=== PATIENT | female | born 1950 | race African-American/Black ===

== ENCOUNTER 2017-01-19 08:31 | Inpatient (IN) | payer MEDICARE, MEDICAID ==
[~2017-01-19] VITALS: Ht 167.6 cm; Wt 63.5 kg
[~2017-01-19 08:31] MED LIST: AMLO10TA80 PO; AP50 PO; ATOR20TA PO; CALC667C4 PO; CATATTS2 TD; CLON1PAT8 TD; ESOM40CA PO; FERR-63 PO; FURO80TA87 PO; LOTE5DRO5 OP; METO100T5 PO; METO10TA3 PO; METO5TAB69 PO; POTA10TA19 PO; ROC50 PO; SERT50TA PO; [UNRECOGNIZED DRUG - CODE]; [UNRECOGNIZED DRUG - CODE] TD
[2017-01-19] MEDS ORDERED: ONDANSETRON HCL 4MG/2ML VIAL IV STA (09:10)
[2017-01-19 09:41] LABS: BASOPHILS % 0.4 % (0.0-2.0); EOSINOPHILS % 1.8 % (0.0-5.0); HEMATOCRIT. 42.7 % (36.0-48.0); HEMOGLOBIN. 14.6 g/dL (12.0-16.0); LYMPHOCYTES % 14.3 % (20.0-50.0); MEAN CORPUSCULAR HEMOGLOBIN 32.4 pg (28.0-32.0); MEAN CORPUSCULAR HGB CONC 34.1 g/dL (31.0-37.0); MEAN CORPUSCULAR VOLUME 94.9 fL (81.0-99.0); MEAN PLATELET VOLUME 8.3 fl (7.4-10.4); MONOCYTES % 7.7 % (2.0-8.0); NEUTROPHILS % 75.8 % (40.0-76.0); PLATELET 295 x1000/uL (130-400); RED CELL DISTRIBUTION WIDTH 14.7 % (11.6-14.6); WHITE BLOOD COUNT 10.5 x1000/uL (4.5-11.0)
[2017-01-19 09:48] LABS: CHLORIDE 82 mEq/L (98-107); INDEX HEMOLYSI 3 (1-3); INDEX ICTERIC 1 (1-4); INDEX LIPEMIC 1 (1-3)
[2017-01-19 09:58] LABS: ALANINE AMINOTRANSFERASE 22 IU/L (13-61); ALBUMIN 4.1 g/dL (3.4-5.0); ANION GAP 21; CALCIUM 10.4 mg/dL (8.5-10.1); CARBON DIOXIDE 30 mEq/L (21-32); LIPASE 338 IU/L (73-393); NT PRO B-TYPE NATRIURETIC PEP 14534 pg/mL (5-125); UREA NITROGEN BLOOD 37 mg/dL (7-21); eGFR 5 mL/min (>60)
[2017-01-19] MEDS ORDERED: METOCLOPRAMIDE HCL 10MG/2ML VIAL IV ONE (10:00)
[2017-01-19 10:22] LABS: CLARITY URINE CLEAR (CLEAR); COLOR URINE YELLOW (YELLOW); GLUCOSE URINE 2+ (NEGATIVE); KETONES URINE NEGATIVE (NEGATIVE); LEUKOCYTE ESTERASE URINE TRACE (NEGATIVE); NITRITE URINE NEGATIVE (NEGATIVE); OCCULT BLOOD URINE TRACE (NEGATIVE); PH URINE >=9.0 (4.5-8.0); PROTEIN URINE 3+ (NEGATIVE); SPECIFIC GRAVITY URINE 1.013 (1.005-1.030); UROBILINOGEN URINE 0.2 E.U./dL (0.2-1.0)
[2017-01-19] MEDS ORDERED: VANCOMYCIN 1 G PREMIX 200 ML IV SCH (10:30)
[2017-01-19] MEDS ORDERED: PIPERACILLIN/TAZ 3.375G PREMIX 50 ML IV ONE (10:30)
[2017-01-19 10:45] LABS: SQUAMOUS EPITHELIAL CELL URINE 2+ /lpf (RARE/1+)
[2017-01-19 10:46] LABS: BACTERIA URINE 2+; RBC URINE NONE SEEN /hpf (0-2)
[2017-01-19] MEDS ORDERED: CLONIDINE 0.1MG TABLET PO PRN (12:45)
[2017-01-19] MEDS ORDERED: HYDROMORPHONE HCL/PF 2MG/ML CPJ IV PRN (12:45)
[2017-01-19] MEDS ORDERED: DOCUSATE SODIUM 100MG CAPSULE PO PRN (12:45)
[2017-01-19] MEDS ORDERED: ACETAMINOPHEN 325MG TABLET PO PRN (12:45)
[2017-01-19] MEDS ORDERED: ONDANSETRON HCL 4MG/2ML VIAL IV PRN (12:45)
[2017-01-19 13:45] VITALS: BP 169/83
[2017-01-19] MEDS ORDERED: PROCHLORPERAZINE MALEATE 25MG SUPP PR PRN (14:00)
[2017-01-19] MEDS ORDERED: SODIUM CHLORIDE 0.9% 1,000 ML IV SCH (14:15)
[2017-01-19] MEDS ORDERED: DEXTROSE 50% WATER 50ML SYRINGE IV PRN (14:30)
[2017-01-19] MEDS ORDERED: SODIUM CHL 0.45% + KCL 20MEQ/L 1,000 ML IV SCH (14:30)
[2017-01-19] MEDS: FERROUS SULFATE 325MG TABLET PO SCH ×2 (14:53→17:02)
[2017-01-19] MEDS: HYDRALAZINE HCL 50MG TABLET PO SCH ×2 (14:54→20:45)
[2017-01-19 15:46] LABS: CREATINE KINASE MB FRACTION 5.1 ng/mL (0.5-3.6); TROPONIN I 0.09 ng/mL (0.00-0.04)
[2017-01-19 16:00] VITALS: BP 148/72
[2017-01-19] MEDS ORDERED: ENOXAPARIN 40MG/0.4ML SYR SUBCUT SCH (16:00)
[2017-01-19] MEDS: IPRATROPIUM/ALBUTEROL 0.5-3(2.5)MG/3ML NEB HHN SCH ×2 (16:30→21:13)
[2017-01-19] MEDS ORDERED: CALCIUM ACETATE 667MG CAPSULE PO SCH (17:00)
[2017-01-19] MEDS ORDERED: METOPROLOL TARTRATE 100MG TABLET PO SCH (17:00)
[2017-01-19] MEDS: METOCLOPRAMIDE HCL 10MG/2ML VIAL IV SCH (17:11)
[2017-01-19] MEDS: INSULIN LISPRO 100 UNITS/ML SUBCUT SCH ×2 (17:11→21:00)
[2017-01-19] MEDS: BLOOD SUGAR DIAGNOSTIC STRIP TEST SCH ×2 (17:18→21:00)
[2017-01-19 20:10] VITALS: BP 87/49
[2017-01-19 22:46] LABS: TROPONIN I 0.14 ng/mL (0.00-0.04)
[2017-01-19 23:30] VITALS: BP 105/46
[2017-01-20] MEDS: METOCLOPRAMIDE HCL 10MG/2ML VIAL IV SCH ×4 (00:22→17:01)
[2017-01-20] MEDS: IPRATROPIUM/ALBUTEROL 0.5-3(2.5)MG/3ML NEB HHN SCH ×6 (00:59→20:36)
[2017-01-20 04:15] VITALS: BP 100/48
[2017-01-20] MEDS: HYDRALAZINE HCL 50MG TABLET PO SCH ×3 (04:45→21:48)
[2017-01-20 06:14] LABS: BASOPHILS % 0.8 % (0.0-2.0); HEMATOCRIT. 37.2 % (36.0-48.0); HEMOGLOBIN. 12.4 g/dL (12.0-16.0); LYMPHOCYTES % 21.8 % (20.0-50.0); MEAN CORPUSCULAR HEMOGLOBIN 32.1 pg (28.0-32.0); MEAN CORPUSCULAR HGB CONC 33.2 g/dL (31.0-37.0); MEAN CORPUSCULAR VOLUME 96.7 fL (81.0-99.0); MEAN PLATELET VOLUME 8.1 fl (7.4-10.4); MONOCYTES % 11.5 % (2.0-8.0); NEUTROPHILS % 61.9 % (40.0-76.0); PLATELET 243 x1000/uL (130-400); RED BLOOD CELL COUNT 3.85 mill/uL (4.2-5.4); RED CELL DISTRIBUTION WIDTH 14.7 % (11.6-14.6); WHITE BLOOD COUNT 7.6 x1000/uL (4.5-11.0)
[2017-01-20] MEDS: BLOOD SUGAR DIAGNOSTIC STRIP TEST SCH ×4 (06:34→21:47)
[2017-01-20] MEDS: INSULIN LISPRO 100 UNITS/ML SUBCUT SCH ×4 (06:52→21:45)
[2017-01-20 08:00] VITALS: BP 116/64
[2017-01-20 08:24] LABS: CALCIUM 9.3 mg/dL (8.5-10.1); MAGNESIUM 2.3 mg/dL (1.8-2.4); PHOSPHORUS 3.8 mg/dL (2.5-4.9)
[2017-01-20] MEDS ORDERED: CEFTRIAXONE 1 G PREMIX 50 ML IV SCH (09:00)
[2017-01-20] MEDS: METOPROLOL TARTRATE 100MG TABLET PO SCH ×3 (09:00→21:00)
[2017-01-20] MEDS: CALCIUM ACETATE 667MG CAPSULE PO SCH ×2 (09:19→17:02)
[2017-01-20] MEDS: PANTOPRAZOLE SODIUM 40 MG/VIAL IV SCH (09:19)
[2017-01-20] MEDS: FERROUS SULFATE 325MG TABLET PO SCH ×3 (09:20→17:00)
[2017-01-20] MEDS: ATORVASTATIN CALCIUM 20MG TABLET PO SCH (09:20)
[2017-01-20] MEDS: AMLODIPINE 10MG TABLET PO SCH (09:20)
[2017-01-20 12:00] VITALS: BP 153/79
[2017-01-20 16:00] VITALS: BP 130/65
[2017-01-20] MEDS: ENOXAPARIN 30MG/0.3ML SYR SUBCUT SCH ×2 (17:01→17:03)
[2017-01-20 20:00] VITALS: BP 97/56
[2017-01-21] VITALS: BP 175/84
[2017-01-21] MEDS: METOCLOPRAMIDE HCL 10MG/2ML VIAL IV SCH ×4 (00:17→17:43)
[2017-01-21] MEDS: HYDRALAZINE HCL 50MG TABLET PO SCH ×4 (00:26→21:38)
[2017-01-21] MEDS: IPRATROPIUM/ALBUTEROL 0.5-3(2.5)MG/3ML NEB HHN SCH ×6 (00:38→21:28)
[2017-01-21 04:00] VITALS: BP 106/59
[2017-01-21] MEDS: BLOOD SUGAR DIAGNOSTIC STRIP TEST SCH ×4 (06:10→21:07)
[2017-01-21 06:29] LABS: BASOPHILS % 0.7 % (0.0-2.0); EOSINOPHILS % 3.2 % (0.0-5.0); HEMATOCRIT. 36.1 % (36.0-48.0); HEMOGLOBIN. 11.9 g/dL (12.0-16.0); LYMPHOCYTES % 15.7 % (20.0-50.0); MEAN CORPUSCULAR VOLUME 97.1 fL (81.0-99.0); MEAN PLATELET VOLUME 8.4 fl (7.4-10.4); MONOCYTES % 8.4 % (2.0-8.0); PLATELET 215 x1000/uL (130-400); RED BLOOD CELL COUNT 3.72 mill/uL (4.2-5.4); RED CELL DISTRIBUTION WIDTH 15.1 % (11.6-14.6); WHITE BLOOD COUNT 10.6 x1000/uL (4.5-11.0)
[2017-01-21] MEDS: INSULIN LISPRO 100 UNITS/ML SUBCUT SCH ×4 (06:38→21:41)
[2017-01-21 06:54] LABS: CALCIUM 8.9 mg/dL (8.5-10.1)
[2017-01-21 08:00] VITALS: BP 99/55
[2017-01-21] MEDS: AMLODIPINE 10MG TABLET PO SCH (09:00)
[2017-01-21] MEDS: METOPROLOL TARTRATE 100MG TABLET PO SCH ×2 (09:00→21:00)
[2017-01-21] MEDS: ATORVASTATIN CALCIUM 20MG TABLET PO SCH (09:06)
[2017-01-21] MEDS: CALCIUM ACETATE 667MG CAPSULE PO SCH ×2 (09:06→17:28)
[2017-01-21] MEDS: FERROUS SULFATE 325MG TABLET PO SCH ×3 (09:07→17:43)
[2017-01-21] MEDS: PANTOPRAZOLE SODIUM 40 MG/VIAL IV SCH (09:07)
[2017-01-21] MEDS: INSULIN DETEMIR UD 100 UNITS/ML SYR SUBCUT SCH (09:12)
[2017-01-21 12:00] VITALS: BP 110/59
[2017-01-21 16:00] VITALS: BP 169/77
[2017-01-21] MEDS: ENOXAPARIN 30MG/0.3ML SYR SUBCUT SCH (17:44)
[2017-01-21 20:00] VITALS: BP 110/51
[2017-01-22] VITALS: BP 105/65
[2017-01-22] MEDS: IPRATROPIUM/ALBUTEROL 0.5-3(2.5)MG/3ML NEB HHN SCH ×2 (00:45→04:45)
[2017-01-22] MEDS: METOCLOPRAMIDE HCL 10MG/2ML VIAL IV SCH ×3 (00:57→12:00)
[2017-01-22] MEDS: HYDRALAZINE HCL 50MG TABLET PO SCH ×2 (05:38→13:09)
[2017-01-22 05:43] LABS: CALCIUM 8.5 mg/dL (8.5-10.1)
[2017-01-22 06:27] LABS: BASOPHILS % 0.9 % (0.0-2.0); EOSINOPHILS % 4.2 % (0.0-5.0); HEMATOCRIT. 33.1 % (36.0-48.0); LYMPHOCYTES % 24.4 % (20.0-50.0); MEAN CORPUSCULAR HEMOGLOBIN 32.7 pg (28.0-32.0); MEAN CORPUSCULAR HGB CONC 33.3 g/dL (31.0-37.0); MEAN CORPUSCULAR VOLUME 98.2 fL (81.0-99.0); MEAN PLATELET VOLUME 8.7 fl (7.4-10.4); NEUTROPHILS % 59.5 % (40.0-76.0); PLATELET 159 x1000/uL (130-400); RED BLOOD CELL COUNT 3.37 mill/uL (4.2-5.4); RED CELL DISTRIBUTION WIDTH 15.1 % (11.6-14.6); WHITE BLOOD COUNT 7.6 x1000/uL (4.5-11.0)
[2017-01-22] MEDS: BLOOD SUGAR DIAGNOSTIC STRIP TEST SCH ×2 (06:39→11:45)
[2017-01-22] MEDS: INSULIN LISPRO 100 UNITS/ML SUBCUT SCH ×2 (06:39→12:40)
[2017-01-22 08:00] VITALS: BP 107/99
[2017-01-22] MEDS: ATORVASTATIN CALCIUM 20MG TABLET PO SCH (08:30)
[2017-01-22] MEDS: METOPROLOL TARTRATE 100MG TABLET PO SCH (08:31)
[2017-01-22] MEDS: AMLODIPINE 10MG TABLET PO SCH (08:31)
[2017-01-22] MEDS: CALCIUM ACETATE 667MG CAPSULE PO SCH (08:32)
[2017-01-22] MEDS: FERROUS SULFATE 325MG TABLET PO SCH ×2 (08:33→13:00)
[2017-01-22] MEDS ORDERED: FAMOTIDINE 20MG TABLET PO SCH (09:00)
[2017-01-22] MEDS: INSULIN DETEMIR UD 100 UNITS/ML SYR SUBCUT SCH (10:53)
[2017-01-22 12:00] VITALS: BP 169/80
[2017-01-22 12:23] VITALS: BP 107/99
[2017-01-24] MEDS ORDERED: CLONIDINE HCL 0.2MG/24HR PATCH TD SCH (09:00)
[2017-01-24] MEDS ORDERED: CLONIDINE HCL 0.3MG/24HR PATCH TD SCH (09:00)
== END 2017-01-22 14:45 | disposition home or self-care (01) | DRG 73 ==
LOC: ER 08:54 → 8WST 10:43
PROVIDERS: ADMIT Internal Medicine Geriatric Medicine; ATTEND Internal Medicine Geriatric Medicine
PROC: 5A1D60Z (ICD-10-PCS; principal; 2017-01-19)
DX: E11.43 Type 2 diabetes mellitus with diabetic autonomic (poly)neuropathy (principal); N18.6 End stage renal disease; E87.2 Acidosis; N39.0 Urinary tract infection, site not specified; E87.1 Hypo-osmolality and hyponatremia; I13.11 Hypertensive heart and chronic kidney disease without heart failure, with stage 5 chronic kidney disease, or end stage renal disease; I16.0 Hypertensive urgency; K31.84 Gastroparesis; E11.65 Type 2 diabetes mellitus with hyperglycemia; D63.8 Anemia in other chronic diseases classified elsewhere; E11.319 Type 2 diabetes mellitus with unspecified diabetic retinopathy without macular edema; E11.22 Type 2 diabetes mellitus with diabetic chronic kidney disease; E86.0 Dehydration; E61.1 Iron deficiency; E86.1 Hypovolemia; E87.70 Fluid overload, unspecified; H40.9 Unspecified glaucoma; Z90.710 Acquired absence of both cervix and uterus; Z99.2 Dependence on renal dialysis; Z86.14 Personal history of Methicillin resistant Staphylococcus aureus infection; Z98.890 Other specified postprocedural states; Z79.4 Long term (current) use of insulin
CPT/HCPCS: 36415; 71010; 74176; 80048; 80053; 81001; 82553; 82962; 83605; 83690; 83735; 83880; 84100; 84484; 85025; 87040; 87086; 93005; 94640; 94664; 96374; 97116; 97162; 97530; 99285; C1893; C9113; J0696; J1650; J1815; J2405; J2543; J2765; J3370; J3480; J7030; J7620

== ENCOUNTER 2017-03-23 08:55 | Inpatient (IN) | payer MEDICARE, MEDICAID ==
[~2017-03-23] VITALS: Ht 167.6 cm; Wt 62.1 kg
[~2017-03-23 08:55] MED LIST changes: +BRIM10DR2; +LATA2.5D2 EACHEYE; -LOTE5DRO5 OP
[2017-03-23] MEDS ORDERED: METOCLOPRAMIDE HCL 10MG/2ML VIAL IV ONE (09:45)
[2017-03-23 10:07] LABS: BASOPHILS % 0.8 % (0.0-2.0); EOSINOPHILS % 2.1 % (0.0-5.0); HEMATOCRIT. 40.3 % (36.0-48.0); HEMOGLOBIN. 13.6 g/dL (12.0-16.0); LYMPHOCYTES % 7.7 % (20.0-50.0); MEAN CORPUSCULAR HEMOGLOBIN 31.3 pg (28.0-32.0); MEAN CORPUSCULAR VOLUME 92.6 fL (81.0-99.0); MEAN PLATELET VOLUME 7.6 fl (7.4-10.4); MONOCYTES % 10.1 % (2.0-8.0); NEUTROPHILS % 79.3 % (40.0-76.0); PLATELET 291 x1000/uL (130-400); RED BLOOD CELL COUNT 4.35 mill/uL (4.2-5.4); RED CELL DISTRIBUTION WIDTH 14.3 % (11.6-14.6)
[2017-03-23 10:15] LABS: PROTHROMBIN TIME 10.7 sec
[2017-03-23 10:26] LABS: CARBON DIOXIDE 26 mEq/L (21-32); CHLORIDE 90 mEq/L (98-107); TROPONIN I 0.04 ng/mL (0.00-0.04)
[2017-03-23] MEDS ORDERED: MORPHINE SULFATE 4 MG/ML CPJ (NOT FOR IM USE) IV ONE (10:30)
[2017-03-23] MEDS ORDERED: HYDRALAZINE 20MG/ML VIAL IV ONE (10:30)
[2017-03-23 10:38] LABS: CLARITY URINE CLEAR (CLEAR); COLOR URINE YELLOW (YELLOW); GLUCOSE URINE 1+ (NEGATIVE); KETONES URINE 1+ (NEGATIVE); LEUKOCYTE ESTERASE URINE TRACE (NEGATIVE); NITRITE URINE NEGATIVE (NEGATIVE); OCCULT BLOOD URINE NEGATIVE (NEGATIVE); PH URINE 8.5 (4.5-8.0); PROTEIN URINE 2+ (NEGATIVE); UROBILINOGEN URINE 0.2 E.U./dL (0.2-1.0)
[2017-03-23 12:00] VITALS: BP 129/65
[2017-03-23 12:06] VITALS: BP 129/65
[2017-03-23] MEDS ORDERED: DEXTROSE 50% WATER 50ML SYRINGE IV PRN (12:30)
[2017-03-23] MEDS ORDERED: METOCLOPRAMIDE HCL 10MG/2ML VIAL IV PRN (12:30)
[2017-03-23] MEDS ORDERED: ACETAMINOPHEN 650MG SUPP PR PRN (13:15)
[2017-03-23] MEDS ORDERED: HYDROMORPHONE HCL/PF 2MG/ML CPJ IV PRN (13:15)
[2017-03-23] MEDS ORDERED: IPRATROPIUM/ALBUTEROL 0.5-3(2.5)MG/3ML NEB INH PRN (13:15)
[2017-03-23] MEDS: BLOOD SUGAR DIAGNOSTIC STRIP TEST SCH ×3 (13:17→21:00)
[2017-03-23] MEDS: PANTOPRAZOLE SODIUM 40 MG/VIAL IV SCH (13:30)
[2017-03-23] MEDS: HYDRALAZINE HCL 50MG TABLET PO SCH ×2 (14:00→21:33)
[2017-03-23] MEDS ORDERED: CLONIDINE HCL 0.2MG/24HR PATCH TD SCH (15:00)
[2017-03-23] MEDS: POTASSIUM CHLORIDE 20MEQ TABLET SR PO SCH ×2 (15:21→17:47)
[2017-03-23] MEDS: ENOXAPARIN 30MG/0.3ML SYR SUBCUT SCH (15:21)
[2017-03-23] MEDS: INSULIN LISPRO 100 UNITS/ML SUBCUT SCH ×3 (15:22→21:00)
[2017-03-23 15:51] LABS: CREATINE KINASE MB FRACTION 1.2 ng/mL (0.5-3.6); TROPONIN I 0.06 ng/mL (0.00-0.04)
[2017-03-23 16:00] VITALS: BP 106/46
[2017-03-23] MEDS: FERROUS SULFATE 325MG TABLET PO SCH (17:00)
[2017-03-23] MEDS: FUROSEMIDE 80MG TABLET PO SCH (17:15)
[2017-03-23] MEDS: CALCIUM ACETATE 667MG CAPSULE PO SCH (17:47)
[2017-03-23 20:00] VITALS: BP 115/51
[2017-03-23] MEDS: AZITHROMYCIN 500 MG in DEXT 5% WATER 250 ML IV SCH (21:31)
[2017-03-23] MEDS: LEVOFLOXACIN 250MG PREMIX 50 ML IV SCH (21:32)
[2017-03-23] MEDS: METOPROLOL TARTRATE 100MG TABLET PO SCH (21:33)
[2017-03-23] MEDS: LATANOPROST 0.005% OPHTH DROPS 2.5ML EACHEYE SCH (21:47)
[2017-03-23 23:30] LABS: CREATINE KINASE MB FRACTION 1.9 ng/mL (0.5-3.6); TROPONIN I 0.09 ng/mL (0.00-0.04)
[2017-03-24] VITALS: BP 165/71
[2017-03-24 04:00] VITALS: BP 124/77
[2017-03-24] MEDS: FUROSEMIDE 80MG TABLET PO SCH ×2 (07:03→16:04)
[2017-03-24] MEDS: HYDRALAZINE HCL 50MG TABLET PO SCH ×3 (07:03→23:47)
[2017-03-24] MEDS: BLOOD SUGAR DIAGNOSTIC STRIP TEST SCH ×4 (07:15→21:00)
[2017-03-24] MEDS: SODIUM CHLORIDE 0.45% 1,000 ML IV SCH ×2 (07:16→10:47)
[2017-03-24 07:30] VITALS: BP 163/94
[2017-03-24] MEDS: CALCIUM ACETATE 667MG CAPSULE PO SCH ×3 (08:10→16:05)
[2017-03-24] MEDS: PANTOPRAZOLE SODIUM 40 MG/VIAL IV SCH (09:25)
[2017-03-24] MEDS: ATORVASTATIN CALCIUM 20MG TABLET PO SCH (09:26)
[2017-03-24] MEDS: FERROUS SULFATE 325MG TABLET PO SCH ×3 (09:26→16:28)
[2017-03-24] MEDS: ENOXAPARIN 30MG/0.3ML SYR SUBCUT SCH (09:26)
[2017-03-24] MEDS: AMLODIPINE 10MG TABLET PO SCH (09:26)
[2017-03-24] MEDS: POTASSIUM CHLORIDE 20MEQ TABLET SR PO SCH ×4 (09:26→17:00)
[2017-03-24] MEDS: ACETAMINOPHEN 325MG TABLET PO PRN ×2 (09:27→18:00)
[2017-03-24] MEDS: METOPROLOL TARTRATE 100MG TABLET PO SCH ×2 (09:27→22:01)
[2017-03-24] MEDS: INSULIN LISPRO 100 UNITS/ML SUBCUT SCH ×4 (09:28→21:00)
[2017-03-24 11:56] VITALS: BP 112/55
[2017-03-24] MEDS: LEVOFLOXACIN 250MG PREMIX 50 ML IV SCH (15:16)
[2017-03-24] MEDS: AZITHROMYCIN 500 MG in DEXT 5% WATER 250 ML IV SCH (15:16)
[2017-03-24] MEDS: SENNOSIDES/DOCUSATE SOD 8.6/50MG TABLET PO SCH ×3 (15:58→17:37)
[2017-03-24] MEDS: NA PHOS,M-B/NA PHOS,DI-BA ENEMA 118ML PR NR ×2 (15:58→16:23)
[2017-03-24] MEDS: DOCUSATE SODIUM 250MG CAPSULE PO SCH ×3 (15:58→17:37)
[2017-03-24 16:00] VITALS: BP 98/41
[2017-03-24 20:00] VITALS: BP 139/80
[2017-03-24] MEDS: LATANOPROST 0.005% OPHTH DROPS 2.5ML EACHEYE SCH (21:59)
[2017-03-24] MEDS: PANTOT AC/MIN OIL/PET HY-PHL OINT 52.5GM (AQUAPHOR) TOP SCH (22:01)
[2017-03-25] VITALS: BP 113/66
[2017-03-25 04:00] VITALS: BP 123/75
[2017-03-25] MEDS: HYDRALAZINE HCL 50MG TABLET PO SCH ×3 (06:00→22:00)
[2017-03-25] MEDS: SODIUM CHLORIDE 0.45% 1,000 ML IV SCH (06:45)
[2017-03-25] MEDS: BLOOD SUGAR DIAGNOSTIC STRIP TEST SCH ×4 (07:06→21:15)
[2017-03-25] MEDS ORDERED: METOCLOPRAMIDE HCL 10MG TABLET PO NR (07:15)
[2017-03-25] MEDS: METOCLOPRAMIDE 10MG/10 ML UDC PO SCH ×4 (07:40→20:56)
[2017-03-25 08:00] VITALS: BP 138/84
[2017-03-25] MEDS: CALCIUM ACETATE 667MG CAPSULE PO SCH ×2 (08:10→12:52)
[2017-03-25] MEDS: INSULIN LISPRO 100 UNITS/ML SUBCUT SCH ×4 (08:10→21:16)
[2017-03-25 08:32] LABS: HEMATOCRIT. 35.4 % (36.0-48.0); HEMOGLOBIN. 11.6 g/dL (12.0-16.0); MEAN CORPUSCULAR HEMOGLOBIN 31.2 pg (28.0-32.0); MEAN CORPUSCULAR VOLUME 94.8 fL (81.0-99.0); MEAN PLATELET VOLUME 8.1 fl (7.4-10.4); PLATELET 239 x1000/uL (130-400); RED BLOOD CELL COUNT 3.74 mill/uL (4.2-5.4)
[2017-03-25] MEDS ORDERED: PANTOPRAZOLE 40MG DR TABLET PO NR (08:45)
[2017-03-25] MEDS: FERROUS SULFATE 325MG TABLET PO SCH ×3 (09:00→17:42)
[2017-03-25] MEDS: AMLODIPINE 10MG TABLET PO SCH (09:00)
[2017-03-25] MEDS: SENNOSIDES/DOCUSATE SOD 8.6/50MG TABLET PO SCH ×2 (09:00→17:00)
[2017-03-25] MEDS: ENOXAPARIN 30MG/0.3ML SYR SUBCUT SCH ×2 (09:00→12:41)
[2017-03-25] MEDS: METOPROLOL TARTRATE 100MG TABLET PO SCH ×2 (09:00→20:55)
[2017-03-25] MEDS: DOCUSATE SODIUM 250MG CAPSULE PO SCH ×2 (09:00→17:00)
[2017-03-25 10:23] LABS: PLATELET ESTIMATE NORMAL
[2017-03-25 12:00] VITALS: BP 138/84
[2017-03-25] MEDS: ATORVASTATIN CALCIUM 20MG TABLET PO SCH (12:40)
[2017-03-25] MEDS: AZITHROMYCIN 250 MG TABLET PO SCH (12:41)
[2017-03-25] MEDS: FUROSEMIDE 80MG TABLET PO SCH ×2 (12:42→17:47)
[2017-03-25] MEDS: POTASSIUM CHLORIDE 20MEQ TABLET SR PO SCH ×3 (12:52→17:41)
[2017-03-25] MEDS: PANTOT AC/MIN OIL/PET HY-PHL OINT 52.5GM (AQUAPHOR) TOP SCH ×2 (13:11→20:57)
[2017-03-25 16:00] VITALS: BP 127/61
[2017-03-25 20:00] VITALS: BP 144/83
[2017-03-25] MEDS: LATANOPROST 0.005% OPHTH DROPS 2.5ML EACHEYE SCH (20:55)
[2017-03-26] VITALS: BP 121/76
[2017-03-26] MEDS: SODIUM CHLORIDE 0.45% 1,000 ML IV SCH (02:45)
[2017-03-26 04:00] VITALS: BP 137/78
[2017-03-26] MEDS: HYDRALAZINE HCL 50MG TABLET PO SCH (06:13)
[2017-03-26] MEDS: FUROSEMIDE 80MG TABLET PO SCH (06:15)
[2017-03-26] MEDS: BLOOD SUGAR DIAGNOSTIC STRIP TEST SCH (06:50)
[2017-03-26 07:25] VITALS: BP 134/95
[2017-03-26] MEDS ORDERED: PANTOPRAZOLE 40MG DR TABLET PO SCH (07:40)
[2017-03-26 08:00] VITALS: BP 134/95
[2017-03-26] MEDS: INSULIN LISPRO 100 UNITS/ML SUBCUT SCH (08:10)
[2017-03-26] MEDS: METOCLOPRAMIDE 10MG/10 ML UDC PO SCH (08:43)
[2017-03-26] MEDS: POTASSIUM CHLORIDE 20MEQ TABLET SR PO SCH (08:44)
[2017-03-26] MEDS: FERROUS SULFATE 325MG TABLET PO SCH (08:44)
[2017-03-26] MEDS: CALCIUM ACETATE 667MG CAPSULE PO SCH (08:44)
[2017-03-26] MEDS: AMLODIPINE 10MG TABLET PO SCH (08:44)
[2017-03-26] MEDS: METOPROLOL TARTRATE 100MG TABLET PO SCH (08:45)
[2017-03-26] MEDS: SENNOSIDES/DOCUSATE SOD 8.6/50MG TABLET PO SCH (09:00)
[2017-03-26] MEDS: ATORVASTATIN CALCIUM 20MG TABLET PO SCH (09:00)
[2017-03-26] MEDS: DOCUSATE SODIUM 250MG CAPSULE PO SCH (09:00)
[2017-03-26] MEDS: ENOXAPARIN 30MG/0.3ML SYR SUBCUT SCH (09:00)
[2017-03-26] MEDS: PANTOT AC/MIN OIL/PET HY-PHL OINT 52.5GM (AQUAPHOR) TOP SCH (09:00)
[2017-03-26] MEDS ORDERED: LEVOFLOXACIN 250MG TABLET PO SCH (11:00)
[2017-03-26] MEDS: AZITHROMYCIN 250 MG TABLET PO SCH (11:39)
[2017-03-26] MEDS ORDERED: LEVOFLOXACIN 250MG PREMIX 50 ML IV SCH (16:00)
[2017-03-29] MEDS ORDERED: METOCLOPRAMIDE HCL 10MG/2ML VIAL IV SCH (18:00)
== END 2017-03-26 12:00 | disposition home or self-care (01) | DRG 682 ==
LOC: ER 10:11 → 7WST 11:04
PROVIDERS: ADMIT Internal Medicine Geriatric Medicine; ATTEND Internal Medicine Geriatric Medicine
PROC: 5A1D60Z (ICD-10-PCS; principal; 2017-03-23)
DX: I13.11 Hypertensive heart and chronic kidney disease without heart failure, with stage 5 chronic kidney disease, or end stage renal disease (principal); N18.6 End stage renal disease; I16.1 Hypertensive emergency; E11.43 Type 2 diabetes mellitus with diabetic autonomic (poly)neuropathy; E11.42 Type 2 diabetes mellitus with diabetic polyneuropathy; K31.84 Gastroparesis; E11.22 Type 2 diabetes mellitus with diabetic chronic kidney disease; E11.319 Type 2 diabetes mellitus with unspecified diabetic retinopathy without macular edema; E87.6 Hypokalemia; H54.8 Legal blindness, as defined in USA; H40.9 Unspecified glaucoma; E11.65 Type 2 diabetes mellitus with hyperglycemia; E11.51 Type 2 diabetes mellitus with diabetic peripheral angiopathy without gangrene; D63.1 Anemia in chronic kidney disease; E86.9 Volume depletion, unspecified; K21.9 Gastro-esophageal reflux disease without esophagitis; Z87.440 Personal history of urinary (tract) infections; Z79.899 Other long term (current) drug therapy; Z99.2 Dependence on renal dialysis; Z90.710 Acquired absence of both cervix and uterus; Z88.8 Allergy status to other drugs, medicaments and biological substances
CPT/HCPCS: 36415; 71010; 74000; 78265; 80048; 80053; 81001; 82553; 82962; 83036; 84484; 85025; 85610; 87086; 93005; 96374; 96375; 99285; A6261; C1893; C9113; J0360; J0456; J1650; J1815; J1956; J2270; J2765; J7030; J7060; J8597

== ENCOUNTER 2017-05-20 08:53 | Inpatient (IN) | payer MEDICARE, MEDICAID ==
[~2017-05-20] VITALS: Ht 167.6 cm; Wt 61.2 kg
[~2017-05-20 08:53] MED LIST changes: -CLON1PAT8 TD; -SERT50TA PO; -[UNRECOGNIZED DRUG - CODE]
[2017-05-20] MEDS ORDERED: ONDANSETRON HCL 4MG/2ML VIAL IV STA (09:11)
[2017-05-20] MEDS ORDERED: HYDRALAZINE 20MG/ML VIAL IV ONE (09:15)
[2017-05-20] MEDS ORDERED: IPRATROPIUM BROMIDE (0.02%) 0.5MG/2.5ML NEB HHN STA (09:17)
[2017-05-20] MEDS ORDERED: ALBUTEROL (0.083%) 2.5MG/3ML NEB HHN STA (09:17)
[2017-05-20 09:40] LABS: BASOPHILS % 0.6 % (0.0-2.0); EOSINOPHILS % 5.2 % (0.0-5.0); HEMATOCRIT. 40.1 % (36.0-48.0); HEMOGLOBIN. 13.6 g/dL (12.0-16.0); LYMPHOCYTES % 11.6 % (20.0-50.0); MEAN CORPUSCULAR HEMOGLOBIN 31.5 pg (28.0-32.0); MEAN CORPUSCULAR VOLUME 93.3 fL (81.0-99.0); MONOCYTES % 8.9 % (2.0-8.0); NEUTROPHILS % 73.7 % (40.0-76.0); PLATELET 299 x1000/uL (130-400); RED CELL DISTRIBUTION WIDTH 13.9 % (11.6-14.6)
[2017-05-20 09:48] LABS: INR 1.1
[2017-05-20 09:59] LABS: CARBON DIOXIDE 33 mEq/L (21-32); CHLORIDE 88 mEq/L (98-107); PHOSPHORUS 3.8 mg/dL (2.5-4.9)
[2017-05-20 11:36] LABS: CLARITY URINE CLOUDY (CLEAR); COLOR URINE YELLOW (YELLOW); GLUCOSE URINE 2+ (NEGATIVE); KETONES URINE TRACE (NEGATIVE); LEUKOCYTE ESTERASE URINE 1+ (NEGATIVE); NITRITE URINE NEGATIVE (NEGATIVE); OCCULT BLOOD URINE TRACE (NEGATIVE); PH URINE 6.5 (4.5-8.0); PROTEIN URINE 3+ (NEGATIVE); SPECIFIC GRAVITY URINE 1.017 (1.005-1.030); UROBILINOGEN URINE 0.2 E.U./dL (0.2-1.0)
[2017-05-20] MEDS ORDERED: CLONIDINE 0.1MG TABLET PO PRN (14:30)
[2017-05-20] MEDS ORDERED: HYDROMORPHONE HCL/PF 2MG/ML CPJ IV PRN (14:30)
[2017-05-20] MEDS ORDERED: ACETAMINOPHEN 325MG TABLET PO PRN (14:30)
[2017-05-20] MEDS ORDERED: IPRATROPIUM/ALBUTEROL 0.5-3(2.5)MG/3ML NEB INH PRN (14:30)
[2017-05-20] MEDS ORDERED: ONDANSETRON HCL 4MG/2ML VIAL IV PRN (14:30)
[2017-05-20] MEDS ORDERED: GUAIFENESIN 200MG/10ML SUGAR FREE UDC PO PRN (14:30)
[2017-05-20] MEDS: METOCLOPRAMIDE HCL 10MG/2ML VIAL IV SCH ×2 (15:51→21:26)
[2017-05-20] MEDS: ENOXAPARIN 30MG/0.3ML SYR SUBCUT SCH (15:53)
[2017-05-20 16:00] VITALS: BP 144/63
[2017-05-20 16:28] VITALS: BP 183/95
[2017-05-20] MEDS ORDERED: DEXTROSE 50% WATER 50ML SYRINGE IV PRN (17:45)
[2017-05-20] MEDS: INSULIN LISPRO 100 UNITS/ML SUBCUT SCH ×2 (18:23→21:41)
[2017-05-20] MEDS ORDERED: NA PHOS,M-B/NA PHOS,DI-BA ENEMA 118ML PR NR (18:30)
[2017-05-20] MEDS ORDERED: PROCHLORPERAZINE 10MG/2ML VIAL IV PRN (18:30)
[2017-05-20] MEDS ORDERED: LATANOPROST 0.005% OPHTH DROPS 2.5ML EACHEYE PRN (18:30)
[2017-05-20 20:11] VITALS: BP 109/48
[2017-05-20] MEDS: METOPROLOL TARTRATE 100MG TABLET PO SCH (21:00)
[2017-05-20] MEDS ORDERED: SODIUM CHLORIDE 0.45% 250 ML IV ONE (21:00)
[2017-05-20] MEDS: ATORVASTATIN CALCIUM 20MG TABLET PO SCH (21:26)
[2017-05-20] MEDS: NITROGLYCERIN OINT 1GM/INCH UDPKT TD SCH (21:26)
[2017-05-20] MEDS: BLOOD SUGAR DIAGNOSTIC STRIP TEST SCH (21:28)
[2017-05-20] MEDS: HYDRALAZINE HCL 50MG TABLET PO SCH (21:28)
[2017-05-20 23:08] LABS: CREATINE KINASE MB FRACTION 2.7 ng/mL (0.5-3.6); TROPONIN I 0.18 ng/mL (0.00-0.04)
[2017-05-21] VITALS: BP 95/42
[2017-05-21] MEDS: METOCLOPRAMIDE HCL 10MG/2ML VIAL IV SCH ×4 (02:55→20:25)
[2017-05-21 04:00] VITALS: BP 114/45
[2017-05-21] MEDS: HYDRALAZINE HCL 50MG TABLET PO SCH ×3 (05:53→21:41)
[2017-05-21] MEDS: NITROGLYCERIN OINT 1GM/INCH UDPKT TD SCH ×3 (05:53→21:40)
[2017-05-21 06:19] LABS: EOSINOPHILS % 8.1 % (0.0-5.0); HEMATOCRIT. 33.7 % (36.0-48.0); HEMOGLOBIN. 11.3 g/dL (12.0-16.0); LYMPHOCYTES % 19.4 % (20.0-50.0); MEAN CORPUSCULAR HEMOGLOBIN 32.1 pg (28.0-32.0); MEAN CORPUSCULAR VOLUME 95.3 fL (81.0-99.0); MEAN PLATELET VOLUME 8.4 fl (7.4-10.4); MONOCYTES % 10.7 % (2.0-8.0); NEUTROPHILS % 60.8 % (40.0-76.0); PLATELET 216 x1000/uL (130-400); RED BLOOD CELL COUNT 3.53 mill/uL (4.2-5.4); RED CELL DISTRIBUTION WIDTH 14.3 % (11.6-14.6)
[2017-05-21] MEDS: BLOOD SUGAR DIAGNOSTIC STRIP TEST SCH ×4 (06:24→20:22)
[2017-05-21 06:48] LABS: CARBON DIOXIDE 29 mEq/L (21-32); CHLORIDE 97 mEq/L (98-107)
[2017-05-21 06:55] LABS: CREATINE KINASE MB FRACTION 3.1 ng/mL (0.5-3.6); TROPONIN I 0.13 ng/mL (0.00-0.04)
[2017-05-21 07:56] VITALS: BP 124/64
[2017-05-21] MEDS ORDERED: NA PHOS,M-B/NA PHOS,DI-BA ENEMA 118ML PR NR (08:45)
[2017-05-21] MEDS: PANTOPRAZOLE SODIUM 40 MG/VIAL IV SCH (08:53)
[2017-05-21] MEDS: SORBITOL 70% SOLN 30ML PO PRN (08:53)
[2017-05-21] MEDS: CALCITRIOL 0.25MCG CAPSULE PO SCH (08:53)
[2017-05-21] MEDS: AMLODIPINE 10MG TABLET PO SCH (08:54)
[2017-05-21] MEDS: FERROUS SULFATE 325MG TABLET PO SCH ×3 (08:55→18:17)
[2017-05-21] MEDS: METOPROLOL TARTRATE 100MG TABLET PO SCH ×2 (08:55→20:25)
[2017-05-21] MEDS: CALCIUM ACETATE 667MG CAPSULE PO SCH ×2 (08:55→18:17)
[2017-05-21] MEDS ORDERED: METOPROLOL TARTRATE 100MG TABLET PO SCH (09:00)
[2017-05-21] MEDS: INSULIN LISPRO 100 UNITS/ML SUBCUT SCH ×4 (09:08→20:26)
[2017-05-21 12:00] VITALS: BP 97/48
[2017-05-21 16:00] VITALS: BP 110/61
[2017-05-21] MEDS ORDERED: POTASSIUM CHLORIDE 10MEQ TABLET SR PO NR (16:30)
[2017-05-21] MEDS: ENOXAPARIN 30MG/0.3ML SYR SUBCUT SCH (18:16)
[2017-05-21 20:00] VITALS: BP 122/55
[2017-05-21] MEDS: ATORVASTATIN CALCIUM 20MG TABLET PO SCH (20:24)
[2017-05-22] VITALS: BP 140/68
[2017-05-22] MEDS: METOCLOPRAMIDE HCL 10MG/2ML VIAL IV SCH ×4 (02:09→21:02)
[2017-05-22 04:00] VITALS: BP 126/67
[2017-05-22] MEDS: NITROGLYCERIN OINT 1GM/INCH UDPKT TD SCH ×3 (05:41→21:04)
[2017-05-22] MEDS: HYDRALAZINE HCL 50MG TABLET PO SCH ×3 (05:41→21:09)
[2017-05-22] MEDS: BLOOD SUGAR DIAGNOSTIC STRIP TEST SCH ×4 (06:30→21:04)
[2017-05-22 07:01] LABS: BASOPHILS % 0.6 % (0.0-2.0); EOSINOPHILS % 6.8 % (0.0-5.0); HEMATOCRIT. 36.9 % (36.0-48.0); HEMOGLOBIN. 12.3 g/dL (12.0-16.0); MEAN CORPUSCULAR HEMOGLOBIN 31.7 pg (28.0-32.0); MEAN CORPUSCULAR VOLUME 95.4 fL (81.0-99.0); MEAN PLATELET VOLUME 8.5 fl (7.4-10.4); MONOCYTES % 10.3 % (2.0-8.0); NEUTROPHILS % 71.3 % (40.0-76.0); PLATELET 264 x1000/uL (130-400); RED BLOOD CELL COUNT 3.87 mill/uL (4.2-5.4); RED CELL DISTRIBUTION WIDTH 14.2 % (11.6-14.6)
[2017-05-22 08:00] VITALS: BP 109/47
[2017-05-22] MEDS: AMLODIPINE 10MG TABLET PO SCH (09:00)
[2017-05-22] MEDS: METOPROLOL TARTRATE 100MG TABLET PO SCH ×2 (09:00→21:04)
[2017-05-22] MEDS: CALCITRIOL 0.25MCG CAPSULE PO SCH (09:16)
[2017-05-22] MEDS: SORBITOL 70% SOLN 30ML PO PRN (09:16)
[2017-05-22] MEDS: PANTOPRAZOLE SODIUM 40 MG/VIAL IV SCH (09:16)
[2017-05-22] MEDS: FERROUS SULFATE 325MG TABLET PO SCH ×3 (09:16→18:26)
[2017-05-22] MEDS: CALCIUM ACETATE 667MG CAPSULE PO SCH ×2 (09:16→18:27)
[2017-05-22] MEDS: INSULIN LISPRO 100 UNITS/ML SUBCUT SCH ×4 (09:33→21:06)
[2017-05-22] MEDS ORDERED: HEPARIN SODIUM 1,000 UNIT/1ML VIAL IV NR (11:30)
[2017-05-22 12:00] VITALS: BP 95/47
[2017-05-22 16:00] VITALS: BP 128/53
[2017-05-22] MEDS: ENOXAPARIN 30MG/0.3ML SYR SUBCUT SCH (18:26)
[2017-05-22 20:00] VITALS: BP 192/89
[2017-05-22] MEDS: ATORVASTATIN CALCIUM 20MG TABLET PO SCH (21:03)
[2017-05-23] VITALS: BP 122/47
[2017-05-23] MEDS: METOCLOPRAMIDE HCL 10MG/2ML VIAL IV SCH ×2 (02:10→08:42)
[2017-05-23 04:00] VITALS: BP 125/49
[2017-05-23] MEDS: HYDRALAZINE HCL 50MG TABLET PO SCH ×2 (06:02→13:59)
[2017-05-23] MEDS: NITROGLYCERIN OINT 1GM/INCH UDPKT TD SCH ×2 (06:02→13:59)
[2017-05-23 06:19] LABS: BASOPHILS % 0.8 % (0.0-2.0); EOSINOPHILS % 7.9 % (0.0-5.0); HEMATOCRIT. 33.8 % (36.0-48.0); HEMOGLOBIN. 11.3 g/dL (12.0-16.0); LYMPHOCYTES % 16.1 % (20.0-50.0); MEAN CORPUSCULAR HEMOGLOBIN 31.7 pg (28.0-32.0); MEAN CORPUSCULAR VOLUME 95.2 fL (81.0-99.0); MEAN PLATELET VOLUME 8.6 fl (7.4-10.4); MONOCYTES % 10.5 % (2.0-8.0); NEUTROPHILS % 64.7 % (40.0-76.0); PLATELET 225 x1000/uL (130-400); RED BLOOD CELL COUNT 3.55 mill/uL (4.2-5.4); RED CELL DISTRIBUTION WIDTH 14.1 % (11.6-14.6)
[2017-05-23] MEDS: BLOOD SUGAR DIAGNOSTIC STRIP TEST SCH ×2 (06:38→12:12)
[2017-05-23 08:00] VITALS: BP 147/65
[2017-05-23] MEDS: SORBITOL 70% SOLN 30ML PO PRN (08:40)
[2017-05-23] MEDS: FERROUS SULFATE 325MG TABLET PO SCH ×2 (08:41→12:16)
[2017-05-23] MEDS: AMLODIPINE 10MG TABLET PO SCH (08:41)
[2017-05-23] MEDS: METOPROLOL TARTRATE 100MG TABLET PO SCH (08:41)
[2017-05-23] MEDS: CALCITRIOL 0.25MCG CAPSULE PO SCH (08:41)
[2017-05-23] MEDS: CALCIUM ACETATE 667MG CAPSULE PO SCH (08:41)
[2017-05-23] MEDS: INSULIN LISPRO 100 UNITS/ML SUBCUT SCH ×2 (08:51→14:07)
[2017-05-23] MEDS ORDERED: FAMOTIDINE 20MG TABLET PO SCH (09:00)
[2017-05-23] MEDS ORDERED: MAGNESIUM/ALUMINUM HYDROXIDE/SIMETHICONE 30ML UDC PO PRN (11:00)
[2017-05-23] MEDS ORDERED: ATORVASTATIN CALCIUM 20MG TABLET PO SCH (11:00)
[2017-05-23] MEDS ORDERED: MAGNESIUM/ALUMINUM HYDROXIDE/SIMETHICONE 30ML UDC PO NR (11:00)
[2017-05-23 12:00] VITALS: BP 161/62
[2017-05-23 14:51] VITALS: BP 161/62
[2017-05-25] MEDS ORDERED: CLONIDINE HCL 0.2MG/24HR PATCH TD SCH (09:00)
== END 2017-05-23 16:40 | disposition home or self-care (01) | DRG 73 ==
LOC: ER 08:53 → 6WST 10:35 → EDBEDREQ 10:40 → ENRESERV 12:59
PROVIDERS: ADMIT Internal Medicine Geriatric Medicine; ATTEND Internal Medicine Geriatric Medicine
PROC: 5A1D60Z (ICD-10-PCS; principal; 2017-05-20)
DX: E11.43 Type 2 diabetes mellitus with diabetic autonomic (poly)neuropathy (principal); N18.6 End stage renal disease; N39.0 Urinary tract infection, site not specified; I12.0 Hypertensive chronic kidney disease with stage 5 chronic kidney disease or end stage renal disease; E11.22 Type 2 diabetes mellitus with diabetic chronic kidney disease; E11.319 Type 2 diabetes mellitus with unspecified diabetic retinopathy without macular edema; H54.8 Legal blindness, as defined in USA; E86.9 Volume depletion, unspecified; E11.51 Type 2 diabetes mellitus with diabetic peripheral angiopathy without gangrene; I87.2 Venous insufficiency (chronic) (peripheral); E78.00 Pure hypercholesterolemia, unspecified; E11.65 Type 2 diabetes mellitus with hyperglycemia; J45.909 Unspecified asthma, uncomplicated; K31.84 Gastroparesis; K56.41 Fecal impaction; K74.60 Unspecified cirrhosis of liver; Z79.899 Other long term (current) drug therapy; Z90.710 Acquired absence of both cervix and uterus; Z99.2 Dependence on renal dialysis
CPT/HCPCS: 36415; 70450; 71010; 74000; 80048; 80053; 81001; 82270; 82553; 82962; 83605; 83690; 83735; 84100; 84484; 85025; 85610; 87040; 87086; 93005; 94640; 96374; 99291; C9113; J0360; J1644; J1650; J1815; J2405; J2765; J7030; J7040; J7611

== ENCOUNTER 2017-07-13 15:30 | Inpatient (IN) | payer MEDICARE, MEDICAID ==
[~2017-07-13] VITALS: Ht 165.1 cm; Wt 62.6 kg
[2017-07-13] MEDS ORDERED: ONDANSETRON HCL 4MG/2ML VIAL IV STA (17:57)
[2017-07-13] MEDS ORDERED: SODIUM CHLORIDE 0.9% 500 ML IV ONE (17:57)
[2017-07-13] MEDS ORDERED: ACETAMINOPHEN 325MG TABLET PO STA (17:57)
[2017-07-13] MEDS ORDERED: METOCLOPRAMIDE HCL 10MG/2ML VIAL IV ONE ×2 (18:00→21:15)
[2017-07-13 19:14] LABS: BASOPHILS % 0.8 % (0.0-2.0); EOSINOPHILS % 3.3 % (0.0-5.0); HEMATOCRIT. 37.9 % (36.0-48.0); HEMOGLOBIN. 12.7 g/dL (12.0-16.0); LYMPHOCYTES % 11.9 % (20.0-50.0); MEAN CORPUSCULAR HEMOGLOBIN 30.7 pg (28.0-32.0); MEAN CORPUSCULAR VOLUME 91.6 fL (81.0-99.0); MEAN PLATELET VOLUME 8.3 fl (7.4-10.4); MONOCYTES % 8.5 % (2.0-8.0); NEUTROPHILS % 75.5 % (40.0-76.0); PLATELET 302 x1000/uL (130-400); RED BLOOD CELL COUNT 4.14 mill/uL (4.2-5.4); RED CELL DISTRIBUTION WIDTH 14.5 % (11.6-14.6)
[2017-07-13 19:17] LABS: PARTIAL THROMBOPLASTIN TIME 22.7 sec (23.4-31.0); PROTHROMBIN TIME 10.8 sec (9.4-11.6)
[2017-07-13 19:23] LABS: CARBON DIOXIDE 30 mEq/L (21-32); CHLORIDE 94 mEq/L (98-107)
[2017-07-13 19:26] LABS: CREATINE KINASE 105 IU/L (26-192); TROPONIN I 0.06 ng/mL (0.00-0.04)
[2017-07-13] MEDS ORDERED: HYDRALAZINE 20MG/ML VIAL IV ONE ×2 (19:30→22:00)
[2017-07-13] MEDS ORDERED: METRONIDAZOLE 500 MG PREMIX 100 ML IV ONE (21:15)
[2017-07-13] MEDS ORDERED: PIPERACILLIN/TAZ 3.375G PREMIX 50 ML IV ONE (21:15)
[2017-07-13] MEDS ORDERED: HYDRALAZINE 20MG/ML VIAL IV PRN (23:00)
[2017-07-13] MEDS ORDERED: DIPHENHYDRAMINE 50MG/ML VIAL IV PRN (23:00)
[2017-07-13] MEDS ORDERED: ONDANSETRON HCL 4MG/2ML VIAL IV PRN (23:00)
[2017-07-13] MEDS ORDERED: MAGNESIUM/ALUMINUM HYDROXIDE/SIMETHICONE 30ML UDC PO PRN (23:00)
[2017-07-13] MEDS ORDERED: HYDROMORPHONE HCL/PF 2MG/ML CPJ IV PRN (23:00)
[2017-07-13] MEDS ORDERED: CLONIDINE 0.1MG TABLET PO PRN (23:00)
[2017-07-14] MEDS ORDERED: METOCLOPRAMIDE HCL 10MG/2ML VIAL IV SCH (03:00)
[2017-07-14 04:00] VITALS: BP 152/56
[2017-07-14] MEDS ORDERED: DEXTROSE 50% WATER 50ML SYRINGE IV PRN (05:30)
[2017-07-14] MEDS: METOCLOPRAMIDE HCL 10MG/2ML VIAL IV SCH ×4 (06:09→21:17)
[2017-07-14] MEDS: HYDRALAZINE HCL 100MG TABLET PO SCH ×3 (06:09→21:17)
[2017-07-14] MEDS: BLOOD SUGAR DIAGNOSTIC STRIP TEST SCH ×4 (07:24→21:20)
[2017-07-14 08:00] VITALS: BP 103/47
[2017-07-14] MEDS: FUROSEMIDE 40MG/4ML VIAL IVP SCH (09:08)
[2017-07-14] MEDS: INSULIN LISPRO 100 UNITS/ML SUBCUT SCH ×4 (09:10→21:36)
[2017-07-14] MEDS: DOCUSATE SODIUM 250MG CAPSULE PO SCH (09:11)
[2017-07-14] MEDS: ACETAMINOPHEN 325MG TABLET PO PRN (09:11)
[2017-07-14] MEDS: ENOXAPARIN 30MG/0.3ML SYR SUBCUT SCH (09:13)
[2017-07-14] MEDS ORDERED: FUROSEMIDE 40MG/4ML VIAL IVP SCH (09:15)
[2017-07-14] MEDS: POTASSIUM CHLORIDE 8 MEQ TABLET.SA PO SCH (09:22)
[2017-07-14] MEDS: AMLODIPINE 10MG TABLET PO SCH (09:22)
[2017-07-14 09:25] LABS: BASOPHILS % 1.2 % (0.0-2.0); EOSINOPHILS % 9.1 % (0.0-5.0); HEMATOCRIT. 30.5 % (36.0-48.0); HEMOGLOBIN. 10.1 g/dL (12.0-16.0); LYMPHOCYTES % 17.4 % (20.0-50.0); MEAN CORPUSCULAR HEMOGLOBIN 30.8 pg (28.0-32.0); MEAN CORPUSCULAR VOLUME 92.7 fL (81.0-99.0); MEAN PLATELET VOLUME 7.8 fl (7.4-10.4); MONOCYTES % 12.4 % (2.0-8.0); NEUTROPHILS % 59.9 % (40.0-76.0); PLATELET 226 x1000/uL (130-400); RED BLOOD CELL COUNT 3.29 mill/uL (4.2-5.4); RED CELL DISTRIBUTION WIDTH 14.5 % (11.6-14.6)
[2017-07-14] MEDS: METOPROLOL TARTRATE 100MG TABLET PO SCH ×2 (09:25→21:00)
[2017-07-14 10:02] LABS: CREATINE KINASE MB FRACTION 3.6 ng/mL (0.5-3.6)
[2017-07-14 10:11] LABS: TROPONIN I 0.77 ng/mL (0.00-0.04)
[2017-07-14] MEDS ORDERED: CLONIDINE HCL 0.2MG/24HR PATCH TD SCH (11:00)
[2017-07-14 12:00] VITALS: BP 113/44
[2017-07-14] MEDS ORDERED: POTASSIUM CHLORIDE 20MEQ TABLET SR PO SCH (12:45)
[2017-07-14 16:00] VITALS: BP 99/48
[2017-07-14 16:55] LABS: CREATINE KINASE MB FRACTION 3.1 ng/mL (0.5-3.6)
[2017-07-14 17:18] LABS: TROPONIN I 0.67 ng/mL (0.00-0.04)
[2017-07-14 20:00] VITALS: BP 107/50
[2017-07-15] VITALS: BP 128/62
[2017-07-15 04:00] VITALS: BP 128/60
[2017-07-15] MEDS: METOCLOPRAMIDE HCL 10MG/2ML VIAL IV SCH ×4 (04:16→22:16)
[2017-07-15] MEDS: HYDRALAZINE HCL 100MG TABLET PO SCH ×3 (06:00→22:16)
[2017-07-15] MEDS: BLOOD SUGAR DIAGNOSTIC STRIP TEST SCH ×4 (06:37→21:15)
[2017-07-15 07:28] LABS: BASOPHILS % 1.1 % (0.0-2.0); EOSINOPHILS % 13.6 % (0.0-5.0); HEMATOCRIT. 33.9 % (36.0-48.0); HEMOGLOBIN. 11.2 g/dL (12.0-16.0); LYMPHOCYTES % 19.3 % (20.0-50.0); MEAN CORPUSCULAR HEMOGLOBIN 30.9 pg (28.0-32.0); MEAN CORPUSCULAR VOLUME 93.4 fL (81.0-99.0); MEAN PLATELET VOLUME 8.3 fl (7.4-10.4); MONOCYTES % 10.8 % (2.0-8.0); NEUTROPHILS % 55.2 % (40.0-76.0); PLATELET 263 x1000/uL (130-400); RED BLOOD CELL COUNT 3.63 mill/uL (4.2-5.4); RED CELL DISTRIBUTION WIDTH 14.5 % (11.6-14.6)
[2017-07-15 08:00] VITALS: BP 140/50
[2017-07-15] MEDS: DOCUSATE SODIUM 250MG CAPSULE PO SCH (09:00)
[2017-07-15] MEDS: AMLODIPINE 10MG TABLET PO SCH (09:00)
[2017-07-15] MEDS: METOPROLOL TARTRATE 100MG TABLET PO SCH ×2 (09:00→21:00)
[2017-07-15] MEDS: POTASSIUM CHLORIDE 8 MEQ TABLET.SA PO SCH (09:00)
[2017-07-15] MEDS: FUROSEMIDE 40MG/4ML VIAL IVP SCH (09:01)
[2017-07-15] MEDS: ENOXAPARIN 30MG/0.3ML SYR SUBCUT SCH (09:04)
[2017-07-15] MEDS ORDERED: SORBITOL 70% SOLN 30ML PO PRN (09:15)
[2017-07-15] MEDS ORDERED: TEMAZEPAM 15MG CAPSULE PO PRN (09:15)
[2017-07-15] MEDS ORDERED: CLOPIDOGREL 75MG TABLET PO NR (09:15)
[2017-07-15] MEDS: INSULIN LISPRO 100 UNITS/ML SUBCUT SCH ×4 (09:24→21:26)
[2017-07-15] MEDS ORDERED: REGADENOSON 0.4 MG/5 ML IV ONE (10:00)
[2017-07-15] MEDS: NITROGLYCERIN 0.4MG/HR PATCH TOP SCH (10:30)
[2017-07-15 12:00] VITALS: BP 126/62
[2017-07-15 16:00] VITALS: BP 105/51
[2017-07-15] MEDS: FOLIC ACID/VITAMIN B COMP W-C TABLET PO SCH (18:56)
[2017-07-15 20:00] VITALS: BP 130/46
[2017-07-15] MEDS ORDERED: ATORVASTATIN CALCIUM 20MG TABLET PO SCH (21:00)
[2017-07-16] VITALS: BP 108/39
[2017-07-16 04:00] VITALS: BP 131/54
[2017-07-16 05:56] LABS: BASOPHILS % 1.2 % (0.0-2.0); HEMATOCRIT. 31.9 % (36.0-48.0); HEMOGLOBIN. 10.5 g/dL (12.0-16.0); LYMPHOCYTES % 19.6 % (20.0-50.0); MEAN CORPUSCULAR HEMOGLOBIN 30.9 pg (28.0-32.0); MEAN CORPUSCULAR VOLUME 93.4 fL (81.0-99.0); MEAN PLATELET VOLUME 8.5 fl (7.4-10.4); MONOCYTES % 13.2 % (2.0-8.0); PLATELET 222 x1000/uL (130-400); RED BLOOD CELL COUNT 3.41 mill/uL (4.2-5.4); RED CELL DISTRIBUTION WIDTH 14.6 % (11.6-14.6)
[2017-07-16] MEDS: HYDRALAZINE HCL 100MG TABLET PO SCH ×2 (06:14→13:00)
[2017-07-16 06:21] LABS: TROPONIN I 0.29 ng/mL (0.00-0.04)
[2017-07-16 07:25] VITALS: BP 134/50
[2017-07-16] MEDS: INSULIN LISPRO 100 UNITS/ML SUBCUT SCH ×2 (08:10→12:58)
[2017-07-16] MEDS: BLOOD SUGAR DIAGNOSTIC STRIP TEST SCH ×2 (08:13→12:46)
[2017-07-16] MEDS ORDERED: REGADENOSON 0.4 MG/5 ML IV ONE (08:24)
[2017-07-16] MEDS ORDERED: CLOPIDOGREL 75MG TABLET PO SCH (09:00)
[2017-07-16] MEDS: ENOXAPARIN 30MG/0.3ML SYR SUBCUT SCH ×2 (09:00→09:49)
[2017-07-16] MEDS: METOPROLOL TARTRATE 100MG TABLET PO SCH (09:47)
[2017-07-16] MEDS: FOLIC ACID/VITAMIN B COMP W-C TABLET PO SCH (09:47)
[2017-07-16] MEDS: AMLODIPINE 10MG TABLET PO SCH (09:48)
[2017-07-16] MEDS: DOCUSATE SODIUM 250MG CAPSULE PO SCH (09:49)
[2017-07-16] MEDS: FUROSEMIDE 40MG/4ML VIAL IVP SCH (09:49)
[2017-07-16] MEDS: POTASSIUM CHLORIDE 8 MEQ TABLET.SA PO SCH (09:49)
[2017-07-16] MEDS: NITROGLYCERIN 0.4MG/HR PATCH TOP SCH (09:50)
[2017-07-16] MEDS: METOCLOPRAMIDE HCL 10MG/2ML VIAL IV SCH (09:55)
[2017-07-16 12:00] VITALS: BP_SYST 121; BP_SYST 162; BP_DIAS 46; BP_DIAS 90
[2017-07-16] MEDS: ACETAMINOPHEN 325MG TABLET PO PRN (12:55)
[2017-07-16 13:04] VITALS: BP 158/89
== END 2017-07-16 15:15 | disposition home health service (06) | DRG 280 ==
LOC: ER 17:58 → 7WST 19:41 → EDBEDREQ 19:49 → ENRESERV 07-14 02:20 → 7WST 07-14 06:33
PROVIDERS: ADMIT Internal Medicine Geriatric Medicine; ATTEND Internal Medicine Geriatric Medicine
DX: I21.4 Non-ST elevation (NSTEMI) myocardial infarction (principal); N18.6 End stage renal disease; I50.33 Acute on chronic diastolic (congestive) heart failure; E87.2 Acidosis; K31.84 Gastroparesis; E11.43 Type 2 diabetes mellitus with diabetic autonomic (poly)neuropathy; E11.22 Type 2 diabetes mellitus with diabetic chronic kidney disease; I13.2 Hypertensive heart and chronic kidney disease with heart failure and with stage 5 chronic kidney disease, or end stage renal disease; D64.9 Anemia, unspecified; E11.319 Type 2 diabetes mellitus with unspecified diabetic retinopathy without macular edema; E78.00 Pure hypercholesterolemia, unspecified; E87.6 Hypokalemia; E88.09 Other disorders of plasma-protein metabolism, not elsewhere classified; H40.9 Unspecified glaucoma; H54.8 Legal blindness, as defined in USA; I25.10 Atherosclerotic heart disease of native coronary artery without angina pectoris; J45.909 Unspecified asthma, uncomplicated; K74.60 Unspecified cirrhosis of liver; K59.09 Other constipation; E11.51 Type 2 diabetes mellitus with diabetic peripheral angiopathy without gangrene; E11.65 Type 2 diabetes mellitus with hyperglycemia; L30.8 Other specified dermatitis; I25.2 Old myocardial infarction; Z87.11 Personal history of peptic ulcer disease; Z90.710 Acquired absence of both cervix and uterus; Z99.2 Dependence on renal dialysis; L85.3 Xerosis cutis
CPT/HCPCS: 36415; 71010; 78452; 80048; 80053; 80061; 82550; 82553; 82962; 83036; 83605; 83690; 83880; 84443; 84484; 85025; 85610; 85730; 87040; 93005; 93017; 93306; 93970; 96365; 96375; 97116; 97162; 99285; A9500; J0360; J1650; J1815; J1940; J2543; J2765; J2785; J3490; J7030; J7040